=== PATIENT | male | born 1990 | race American Indian/Alaskan Native ===

== ENCOUNTER 2017-02-03 19:23 | Emergency (ER) | payer SELFPAY ==
[2017-02-03 22:38] VITALS: BP 120/68
--- NOTE | 2017-02-04 00:23 | Emergency Department Report ---
ED General Adult HPI - General Chief complaint: Rectal Pain Stated complaint: EXTERNAL HEMORRHOIDS Time Seen by Provider: 02/04/17 00:10 Source: patient Mode of arrival: Ambulatory Limitations: No Limitations - History of Present Illness Initial comments: This is a 26-year-old male well-nourished with nontoxic or ill in appearance with rectal pain 6 days. He stated has a history of external hemorrhoids as 5 years. He has been following up with his primary care doctor but has not seen his regular doctor in the past couple of months. Patient stated he has been prescribed a cream from his PCP last visit that he has been using with no relief currently. Patient stated has slight pain in her bowel movement but had a normal bowel movement yesterday. Patient denies any bleeding rectally. Patient denies any fever, chills, nausea, vomiting, abdominal pain, chest pain, shortness of breath, stiff neck, headache, blurry vision. Patient denies any drug allergies. Denies significant past medical history. MD Complaint: hemorrhoids -: Gradual, days(s) (6) Radiation: non-radiation Severity scale (0 -10): 0 Improves with: none Worsens with: none Associated Symptoms: denies other symptoms. denies: confusion, chest pain, cough, diaphoresis, fever/chills, headaches, loss of appetite, malaise, nausea/ vomiting, rash, seizure, shortness of breath, syncope, weakness Treatments Prior to Arrival: none - Related Data Previous Rx's Medication Instructions Recorded Last Taken Type Hydrocortisone 1% [Hydrocortisone 1 applicatio TP TID #1 tube 02/04/17 Unknown Rx 1% CREAM] Ibuprofen [Motrin 600 MG tab] 600 mg PO Q8H PRN #15 tablet 02/04/17 Unknown Rx Allergies Allergy/AdvReac Type Severity Reaction Status Date / Time No Known Allergies Allergy Verified 02/03/17 19:55 ED Review of Systems ROS: Stated complaint: EXTERNAL HEMORRHOIDS Other details as noted in HPI Constitutional: denies: chills, fever Eyes: denies: eye pain, eye discharge, vision change ENT: denies: ear pain, throat pain Respiratory: denies: cough, shortness of breath, wheezing Cardiovascular: denies: chest pain, palpitations Endocrine: no symptoms reported Gastrointestinal: denies: abdominal pain, nausea, diarrhea Genitourinary: denies: urgency, dysuria Musculoskeletal: denies: back pain, joint swelling, arthralgia Skin: denies: rash, lesions Neurological: denies: headache, weakness, paresthesias Psychiatric: denies: anxiety, depression Hematological/Lymphatic: denies: easy bleeding, easy bruising ED Past Medical Hx - Past Medical History Previous Medical History?: No - Surgical History Past Surgical History?: No - Social History Smoking Status: Never Smoker Substance Use Type: Alcohol - Medications Home Medications: Home Medications Medication Instructions Recorded Confirmed Last Taken Type Hydrocortisone 1% [Hydrocortisone 1 applicatio TP TID #1 tube 02/04/17 Unknown Rx 1% CREAM] Ibuprofen [Motrin 600 MG tab] 600 mg PO Q8H PRN #15 tablet 02/04/17 Unknown Rx ED Physical Exam - General Limitations: No Limitations General appearance: alert, in no apparent distress - Head Head exam: Present: atraumatic, normocephalic, normal inspection - Eye Eye exam: Present: normal appearance, PERRL, EOMI. Absent: scleral icterus, conjunctival injection, nystagmus, periorbital swelling, periorbital tenderness Pupils: Present: normal accommodation - ENT ENT exam: Present: normal exam, normal orophraynx, mucous membranes moist, TM's normal bilaterally, normal external ear exam - Neck Neck exam: Present: normal inspection, full ROM. Absent: tenderness, meningismus, lymphadenopathy, thyromegaly - Respiratory Respiratory exam: Present: normal lung sounds bilaterally. Absent: respiratory distress, wheezes, rales, rhonchi, stridor, chest wall tenderness, accessory muscle use, decreased breath sounds, prolonged expiratory - Cardiovascular Cardiovascular Exam: Present: regular rate, normal rhythm, normal heart sounds. Absent: bradycardia, tachycardia, irregular rhythm, systolic murmur, diastolic murmur, rubs, gallop - GI/Abdominal GI/Abdominal exam: Present: soft, normal bowel sounds. Absent: distended, tenderness, guarding, rebound, rigid, diminished bowel sounds - Rectal Rectal exam: Present: deferred, normal inspection, normal rectal tone, heme (-) stool, hemorrhoids (small external hemmorhoid that is easily returned to rectum) . Absent: heme (+) stool, bloody stool - Extremities Exam Extremities exam: Present: normal inspection, full ROM, normal capillary refill. Absent: tenderness, pedal edema, joint swelling, calf tenderness - Back Exam Back exam: Present: normal inspection, full ROM. Absent: tenderness, CVA tenderness (R), CVA tenderness (L), muscle spasm, paraspinal tenderness, vertebral tenderness, rash noted - Neurological Exam Neurological exam: Present: alert, oriented X3, CN II-XII intact, normal gait - Psychiatric Psychiatric exam: Present: normal affect, normal mood - Skin Skin exam: Present: warm, dry, intact, normal color. Absent: rash ED Course Vital Signs 02/03/17 02/03/17 19:55 22:35 Temperature 98.3 F Pulse Rate 62 53 L Respiratory 20 16 Rate Blood Pressure 106/75 Blood Pressure 120/68 [Right] O2 Sat by Pulse 100 98 Oximetry - Reevaluation(s) Reevaluation #1: 02/04/17 00:26 Patient is sitting and watching tv with no signs of distress noted. ED Medical Decision Making - Medical Decision Making Ed course: This is a 26-year-old male that presents with external hemorrhoids 1-patient received ibuprofen 600 mg by mouth at the time of discharge and patient also received hydrocortisone/lidocaine topical for rectal area. 2- patient was instructed on sitz bath 3- patient was referred to a primary care doctor/colorectal doctor in 24 hours 4- at time time of discharge, the patient does not seem toxic or ill in appearance. No acute signs of distress noted. Patient agrees to discharge treatment plan of care. No further questions noted by the patient. Critical care attestation.: If time is entered above; I have spent that time in minutes in the direct care of this critically ill patient, excluding procedure time. ED Disposition Clinical Impression: Hemorrhoids Qualifiers: Hemorrhoid type: unspecified Qualified Code(s): K64.9 - Unspecified hemorrhoids Disposition: DC-01 TO HOME OR SELFCARE Is pt being admited?: No Does the pt Need Aspirin: No Condition: Stable Instructions: Hemorrhoids (ED), Sitz Bath (GEN), Hydrocortisone (Rectal) Additional Instructions: Follow-up with your primary-care doctor/colorectal doctor in 24 hours As directed to U he can use sitz bath and apply hydrocortisone topical cream as prescribed to rectal area. Prescriptions: Hydrocortisone 1% [Hydrocortisone 1% CREAM] 1 applicatio TP TID #1 tube Ibuprofen [Motrin 600 MG tab] 600 mg PO Q8H PRN #15 tablet PRN Reason: Pain Referrals: WILLIAM,ZAKI V JR, MD [Staff Physician] - 3-5 Days DERIC GARCIA MD [Staff Physician] - 24 Hours PRIMARY CARE, [Primary Care Provider] - 24 Hours [facility] [Outside] - 3-5 Days [facility] [Outside] - 3-5 Days Forms: Work/School Release Form(ED)
== END 2017-02-04 00:45 | disposition home or self-care (01) ==
LOC: ED 19:23
DX: K64.4 Residual hemorrhoidal skin tags (principal)
CPT/HCPCS: 99282